=== PATIENT | female | born 1955 | race Caucasian/White ===

== ENCOUNTER 2024-10-20 09:58 | Emergency (ER) | payer OTHER ==
[~2024-10-20] VITALS: Ht 154.9 cm; Wt 54.4 kg
[~2024-10-20 09:58] MED LIST: NAPR500 PO; PENVK500 PO
[2024-10-20 10:30] VITALS: BP 101/73
[2024-10-20 11:06] LABS: CORONAVIRUS COVID-19 AG Negative (NEGATIVE); INFLUENZA A AG Positive (NEGATIVE); INFLUENZA B AG Negative (NEGATIVE)
[2024-10-20] MEDS ORDERED: Tessalon200 MG PO (11:21)
== END 2024-10-20 11:32 | disposition home or self-care (01) ==
LOC: ER 09:58
PROVIDERS: Physician Assistant
DX: J10.1 Influenza due to other identified influenza virus with other respiratory manifestations (principal); Z88.2 Allergy status to sulfonamides
CPT/HCPCS: 87428-QW; 99283